=== PATIENT | female | born 1985 | race Hispanic/Latino ===

== ENCOUNTER 2017-11-11 21:55 | Emergency (ER) | payer BC ==
[2017-11-11 22:15] VITALS: BP 131/71; RESP 16; TEMP 97.3
[2017-11-12 00:07] VITALS: PULSE 81; O2SAT 99
--- NOTE | 2017-11-12 00:43 | ED PDOC ---
HPI: Female Pain Time Seen by Provider: 11/11/17 22:18 Chief Complaint (Nursing): Female Genitourinary Chief Complaint (Provider): Female Genitourinary History Per: Patient History/Exam Limitations: no limitations Onset/Duration Of Symptoms: Days (x1) Current Symptoms Are (Timing): Still Present Additional Complaint(s): 32 year old female, currently 7 weeks , who presents to the emergency department with a complaint of vaginal spotting associated with nausea ongoing for 1 day. Denied any fever, chills, vomiting or abdominal pain. Patient recently had an ultrasound performed which revealed a intrauterine . PMD: none provided Past Medical History Reviewed: Historical Data, Nursing Documentation, Vital Signs Vital Signs: Last Vital Signs Temp 97.3 F L 11/11/17 22:13 Pulse 81 11/12/17 00:07 Resp 16 11/12/17 00:07 BP 131/71 11/11/17 22:13 Pulse Ox 99 11/12/17 00:07 - Medical History PMH: No Chronic Diseases - Surgical History Surgical History: No Surg Hx - Family History Family History: States: Unknown Family Hx - Social History Current smoker - smoking cessation education provided: No Ex-Smoker (has not smoked in the last 12 months): No Alcohol: None Drugs: Denies - Allergies Allergies/Adverse Reactions: Allergies Allergy/AdvReac Type Severity Reaction Status Date / Time No Known Allergies Allergy Verified 11/11/17 22:15 Review of Systems ROS Statement: Except As Marked, All Systems Reviewed And Found Negative Constitutional: Negative for: Fever, Chills Gastrointestinal: Positive for: Nausea. Negative for: Vomiting, Abdominal Pain Genitourinary Female: Positive for: Vaginal Bleeding (spotting) Physical Exam - Reviewed Nursing Documentation Reviewed: Yes Vital Signs Reviewed: Yes - Physical Exam Appears: Positive for: Well, Non-toxic, No Acute Distress Head Exam: Positive for: ATRAUMATIC, NORMAL INSPECTION, NORMOCEPHALIC Skin: Positive for: Normal Color Eye Exam: Positive for: Normal appearance ENT: Positive for: Normal ENT Inspection Neck: Positive for: Normal, Painless ROM Cardiovascular/Chest: Positive for: Regular Rate, Rhythm, Chest Non Tender Respiratory: Positive for: Normal Breath Sounds. Negative for: Decreased Breath Sounds, Respiratory Distress Gastrointestinal/Abdominal: Positive for: Normal Exam, Soft. Negative for: Tenderness Pelvic Exam: Positive for: Other (closed cervix). Negative for: External Exam Normal, Active Bleeding (vaginal vault) Back: Positive for: Normal Inspection. Negative for: L CVA Tenderness, R CVA Tenderness Extremity: Positive for: Normal ROM Neurologic/Psych: Positive for: Alert, Oriented - ECG O2 Sat by Pulse Oximetry: 99 (RA) Pulse Ox Interpretation: Normal Medical Decision Making Medical Decision Making: Initial Impression: Threatening miscarriage Initial Plan: * BMP * Beta-HCG * CBC * Urinalysis * US OB * US OB transvaginal Time: 2230 --Nurse Ivette jackson pelvic examination. Time: 0000 Pt. w/ normal U/S. Strict pelvic rest instructions given. Pt. will followup with OB tomorrow. Pt. 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 Scribe Attestation: Documented by Merlyn Grande, acting as a scribe for Jad Kirkpatrick MD. Provider Scribe Attestation: All medical record entries made by the Scribe were at my direction and personally dictated by me. I have reviewed the chart and agree that the record accurately reflects my personal performance of the history, physical exam, medical decision making, and the department course for this patient. I have also personally directed, reviewed, and agree with the discharge instructions and disposition. Disposition - Clinical Impression Clinical Impression: Threatened miscarriage - Disposition Disposition: Routine/Home Disposition Time: 00:00 Condition: STABLE Additional Instructions: Please followup with your [facility] tomorrow as previously scheduled. Instructions: Threatened Miscarriage (ED) Forms: [employer] ([place])
[2017-11-12 01:41] LABS: URINE BILIRUBIN NEGATIVE (NEGATIVE); URINE COLOR STRAW (YELLOW); URINE GLUCOSE (UA) NEGATIVE (Normal); URINE KETONE NEGATIVE (NEGATIVE)
[2017-11-12 01:42] LABS: PH,URINE 6.5 (5.0-8.0); URINE BLOOD MODERATE (NEGATIVE); URINE LEUKOCYTE ESTERASE NEGATIVE Leu/uL (Negative); URINE PROTEIN NEGATIVE (NEGATIVE); URINE UROBILINOGEN 0.2 mg/dL (0.2-1.0)
[2017-11-12 01:43] LABS: RBC URINE 5 /hpf (0-3); URINE BACTERIA FEW (<OCC); WBC URINE 1 /hpf (0-5)
--- NOTE | 2017-11-12 14:01 | US ---
PROCEDURE: OB Pelvic Ultrasound HISTORY: 7 wks preg, vaginal spotting. LMP 09/14/2017 compatible with gestational age is 8 weeks, 2 days. COMPARISON: None available. FINDINGS: UTERUS: Gestational sac: Single intrauterine gestation. Measures 2.0 centimeter compatible with estimated gestational age 6 weeks, 3 days. [place]-rump length: Measure 0.8 centimeter compatible with estimated gestational age 6 weeks, 5 days. Yolk sac: Measures 0.4 centimeter. Heart rate: 117 bpm. age (Ultrasound estimated): 6 weeks, 4 days. Lety-gestational hemorrhage: None. Date of delivery (Ultrasound estimated) : 07/03/2018. Uterus measures 9.3 x 4.8 x 5.0 cm. Anteverted. Normal in size and appearance. CERVIX: Long and closed. No cervical abnormality seen. RIGHT OVARY: Measures 2.1 x 1.6 x 2.2 cm. No mass lesion. Normal flow. LEFT OVARY: Not visualized. FREE FLUID: None. OTHER FINDINGS: None. IMPRESSION: Single viable intrauterine gestation with average ultrasound age of 6 weeks, 4 days. heart rate 117 beats per minute.
== END 2017-11-12 00:09 | disposition home or self-care (01) ==
LOC: H.ER 21:55
DX: O03.9 Complete or unspecified spontaneous abortion without complication (principal); Z3A.01 Less than 8 weeks gestation of pregnancy; Z36.9 Encounter for antenatal screening, unspecified